=== PATIENT | male | born 1980 | race Caucasian/White ===

== ENCOUNTER 2023-06-15 20:30 | Day surgery (SDC) | payer BC, SELFPAY ==
--- NOTE | ~2023-06-15 | XR_ITS ---
EXAMINATION: XR SOFT TISSUE NECK CLINICAL INDICATION: Question esophageal food bolus. COMPARISON: None available. TECHNIQUE: 2 views of the soft tissue neck were obtained. FINDINGS: There is normal cervical lordosis. The vertebral heights, alignment and disc heights and normal. No visible acute fracture, dislocation or subluxation seen. There is moderate left C2-C3 facet joint arthropathy and hypertrophy. The prevertebral and paravertebral soft tissues are normal. Airway is widely patent. No radiopaque foreign body seen in the airway. XR/XR soft tissue neck IMPRESSION: . No radiopaque foreign body seen in the airway or cervical esophagus. Moderate left C2-C3 facet joint arthropathy and hypertrophy. No visible acute fracture or dislocation seen. No radiopaque foreign body seen in the soft tissues of the neck
--- NOTE | 2023-06-15 20:56 | ED.GENADULT ---
HPI - General Adult General Chief complaint: General Medical Stated complaint: Piece of steak stuck in throat Time Seen by Provider: 06/15/23 21:14 Source: patient Mode of arrival: ambulatory Limitations: no limitations History of Present Illness HPI narrative: Patient with no significant past medical history apparently had a small piece of steak at 18:00 which he felt stuck in his throat unable to swallow saliva or liquids and solids no history of similar symptoms in the past patient tried Pepsi at home without much relief no stridor no shortness of breath speaking full sentences Related Data Previous Rx's Medication Instructions Recorded omeprazole 20 mg capsule,delayed 20 mg PO DAILY 60 days #60 caps 06/16/23 release Allergies Allergy/AdvReac Type Severity Reaction Status Date / Time No Known Allergies Allergy Verified 06/15/23 20:59 Review of Systems Review of Systems: Yes all other systems are reviewed and are negative [facility] Social History Social History Alcohol intake: current Alcohol intake frequency: holidays/special occasions only Smoked in Last 30 Days: No Use of substances other than those prescribed or required for medical reasons: No Advance Directives: No Advance Directives Information Provided: No Physical Exam ED Vital Signs: Vital Signs - 24 hr 06/15/23 20:57 06/15/23 22:50 06/16/23 00:29 Temperature 97.2 F 97 F Pulse Rate 92 68 80 Respiratory Rate 18 16 17 Blood Pressure 121/82 116/81 130/79 Pulse Oximetry 98 92 98 Oxygen Delivery Method Room Air Room Air Nasal Cannula Oxygen Flow Rate 4 06/16/23 00:34 06/16/23 00:39 06/16/23 00:44 Temperature Pulse Rate 82 78 82 Respiratory Rate 16 14 16 Blood Pressure 127/74 118/80 119/71 Pulse Oximetry 98 97 98 Oxygen Delivery Method Room Air Room Air Room Air Oxygen Flow Rate 06/16/23 00:59 06/16/23 01:04 06/16/23 04:08 Temperature 97.1 F 98.3 F Pulse Rate 78 80 75 Respiratory Rate 14 14 20 Blood Pressure 112/70 114/76 109/67 Pulse Oximetry 99 100 100 Oxygen Delivery Method Room Air Room Air Room Air Oxygen Flow Rate 06/16/23 05:58 Temperature Pulse Rate 100 Respiratory Rate 16 Blood Pressure 114/72 Pulse Oximetry 100 Oxygen Delivery Method Room Air Oxygen Flow Rate BMI result Body Mass Index 28.1 Appearance: Alert. Oriented X3. No acute distress. Eyes: PERRLA, No Nystagmus ENT: Pharynx normal. Oral Mucosa moist no stridor Neck: Normal inspection. Neck supple. CVS: Normal heart rate and rhythm. Pulses normal. Respiratory: No respiratory distress. Equal air entry bilateral, no wheezing/rales/rhonchi Abdomen: Soft and nontender. Bowel sounds are present, no mass palpable, no CVA tenderness Skin: Skin warm and dry. Normal skin color. Normal skin turgor. Extremities: No lower extremity edema. No calf tenderness Neuro: Oriented X 3. Course Course Course Narrative: RME- 42 year old male presents for evaluation of a piece of steak stuck in his throat that happened around 6pm. He is currently managing secretions but reports that he is unable to tolerate fluids. Medications Administered Discontinued Medications Generic Name Dose Route Start Last Admin Trade Name Freq PRN Reason Stop Dose Admin Glucagon 1 mg 06/15/23 21:26 06/15/23 21:58 Glucagon Hcl 1 Mg Vial IVPUSH 06/15/23 21:27 1 mg ONCE ONE Administration Medical Decision Making Medical Decision Making [facility] Narrative: 21:30 Carbonated drinks were tried without any response will give IV glucagon and there is no response will get the GI consult for endoscopy and removal of the foreign body 1 am patient came back from short stay after piece of steak was stable from the distal esophagus patient was able to drink p.o. fluids after that discharge patient home advised to follow up as outpatient 06:28 : Dr. Santoro's The patient was kept overnight after procedural sedation since he did not have a ride home and the plan was to keep him here until was awake and alert and able to drive. I did review Dr. Rdz's endoscopy note. The patient had a large piece of steak impacted in the distal esophagus. This was removed piecemeal. The patient did have focal esophagitis but this was felt to be secondary to the impacted food bolus. Biopsies were taken. I did discuss these findings with the patient and told the patient he should contact Dr. Rdz's office for follow-up and to discuss the biopsy results. 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 the patient states that prior to this he was not having any difficulty swallowing liquids or solids, he is currently having some soreness in his throat but this is most likely secondary to the endoscopy and food bolus impaction. Differential Diagnosis Differential Diagnoses: The differential diagnosis associated with the presentation includes Foreign body impaction/achlasia Lab Data 06/15/23 22:25 06/15/23 22:25 Labs: Lab Results 06/15/23 Range/Units 22:25 WBC 8.4 (4.8-10.8) X10*3/uL RBC 4.96 (4.60-5.80) X10*6/uL Hgb 15.0 (14.0-18.0) g/dl Hct 42.9 (42.0-52.0) % MCV 86.5 (80.0-98.0) fL MCH 30.2 (27.0-33.0) pg MCHC 35.0 (31.0-36.0) g/dl RDW 11.7 (11.0-16.0) % Plt Count 199 (160-400) X10*3/uL MPV 10.5 (9.4-12.4) fL Immature Gran % (Auto) 0.2 (0.0-0.4) % Neut % (Auto) 74.5 H (45-73) % Lymph % (Auto) 17.0 L (20-40) % Lares % (Auto) 4.7 (2-11) % Eos % (Auto) 2.3 (0-4) % Baso % (Auto) 1.3 (0-2) % Lymph # (Auto) 1.4 (1.2-4.9) X10*3/uL Lares # (Auto) 0.4 (0.1-1.2) X10*3/uL Eos # (Auto) 0.2 (0.0-0.4) X10*3/uL Baso # (Auto) 0.1 (0.0-0.2) X10*3/uL Abs Immat Gran (auto) 0.02 (0.00-0.03) X10*3/uL Absolute Neuts (auto) 6.2 (2.0-8.3) x10*3/uL Absolute Nucleated RBC 0.000 (0.0-0.012) X10*3/uL Nucleated RBC % (auto) 0.0 (0.0-0.2) /100WBC Sodium 139 (135-145) mmol/L Potassium 3.3 (3.3-5.1) mmol/L Chloride 107 (96-108) mmol/L Carbon Dioxide 21 L (22-29) mmol/L Anion Gap 14 (12-20) BUN 12 (9-16) mg/dL Creatinine 1.07 (0.5-1.4) mg/dL Estim Creat Clear Calc 93.9 Estimated GFR > 60 Random Glucose 197 H (60-115) mg/dL Calcium 9.4 (8.4-10.2) mg/dL Total Bilirubin 0.5 (0.0-1.0) mg/dL AST 21 (5-37) U/L ALT 17 (0-40) U/L Alkaline Phosphatase 60 (39-117) U/L Total Protein 7.4 (6.5-8.0) g/dL Albumin 4.5 (3.5-5.0) g/dL Lipase 17 (8-78) U/L Independent Interpretation I performed an independent interpretation of an: EKG Discharge Plan Discharge Clinical Impression: Impacted esophageal foreign body Patient Disposition: Home, Self-Care
[2023-06-15 20:57] VITALS: BP 121/82; PULSE 92; RESP 18; TEMP 36.2; O2SAT 98; BMI 28.1
--- NOTE | 2023-06-15 20:59 | ECG_ITS ---
Test Reason : PRE OP Blood Pressure : / mmHG Vent. Rate : 082 BPM Atrial Rate : 082 BPM P-R Int : 152 ms QRS Dur : 086 ms QT Int : 354 ms P-R-T Axes : 059 -10 014 degrees QTc Int : 413 ms Normal sinus rhythm with sinus arrhythmia Nonspecific ST abnormality Inferior leads Abnormal ECG No previous ECGs available Referred By: Jimmie Rosales Electronically Signed By:SOHEILA HARMON MD
--- NOTE | 2023-06-15 21:48 | MHC.EDTECH ---
Dr Conner stated did not need lab work and EKG. Saniya KRAUS aware.
[2023-06-15] MEDS: glucagon HCL 1 MG VIAL IVPUSH (21:58)
[2023-06-15 22:31] LABS: MANUAL DIFF FLAG NO
[2023-06-15 22:33] LABS: Basophils Absolute Auto 0.1 X10*3/uL (0.0-0.2); Basophils Percent Auto 1.3 % (0-2); Eosinophils Absolute Auto 0.2 X10*3/uL (0.0-0.4); Eosinophils Percent Auto 2.3 % (0-4); Hematocrit 42.9 % (42.0-52.0); Imm Gran Abs Auto 0.02 X10*3/uL (0.00-0.03); Imm Gran Pct Auto 0.2 % (0.0-0.4); Lymphocytes Absolute Auto 1.4 X10*3/uL (1.2-4.9); Mean Corpuscular Hemoglobin 30.2 pg (27.0-33.0); Mean Corpuscular Volume 86.5 fL (80.0-98.0); Mean Platelet Volume 10.5 fL (9.4-12.4); Monocytes Absolute Auto 0.4 X10*3/uL (0.1-1.2); Monocytes Percent Auto 4.7 % (2-11); Neutrophils Absolute Auto 6.2 x10*3/uL (2.0-8.3); Neutrophils Percent Auto 74.5 % (45-73); Platelet Count 199 X10*3/uL (160-400); Red Blood Count 4.96 X10*6/uL (4.60-5.80); Red Cell Distribution Width 11.7 % (11.0-16.0); White Blood Count 8.4 X10*3/uL (4.8-10.8)
[2023-06-15 22:48] LABS: Alanine Aminotransferase 17 U/L (0-40); Albumin Level 4.5 g/dL (3.5-5.0); Alkaline Phosphatase 60 U/L (39-117); Anion Gap 14 (12-20); Aspartate Amino Transferase 21 U/L (5-37); Bilirubin Total 0.5 mg/dL (0.0-1.0); Blood Urea Nitrogen 12 mg/dL (9-16); Calcium 9.4 mg/dL (8.4-10.2); Carbon Dioxide 21 mmol/L (22-29); Chloride 107 mmol/L (96-108); Creatinine Clr Calc Pharmacy 93.9; Estimated Glomerular Filt Rate > 60; Glucose Random 197 mg/dL (60-115); Lipase 17 U/L (8-78); Potassium 3.3 mmol/L (3.3-5.1); Sodium 139 mmol/L (135-145); Total Protein 7.4 g/dL (6.5-8.0)
[2023-06-15 22:50] VITALS: BP 116/81; PULSE 68; RESP 16; O2SAT 92
--- NOTE | 2023-06-15 22:55 | PM.GICN ---
History of Present Illness Data of Consult Service Date: 06/15/23 Requesting physician: Luke Conner Primary Care Provider: None Physician HPI Reason for consult: dysphagia 42 YM presented to [facility] [place] ED today with dysphagia. Pt had a small piece of steak (rare) at 18:00 which he felt stuck in his throat unable to swallow saliva or liquids since then. Pt states he only took one bite. Patient tried Pepsi at home without much relief No stridor no shortness of breath speaking full sentences Pt denies past hx of dysphagia. He gives a hx of heartburn at age 15. Denies any chronic medical problems, snoring or sleep apnea Denies past surgeries or anesthesia Pt denies smoking and drinks 1-2 beers a few times a week Pt denies known family hx of colon polyps or GI malignancy. Mom has a hx of GERD. Pt lives with his and 3 kids. Review of Systems Review of Systems: Yes all other systems are reviewed and are negative PMF[facility] Social History Social History Advance Directives: No Advance Directives Information Provided: No Meds Allergies Allergy/AdvReac Type Severity Reaction Status Date / Time No Known Allergies Allergy Verified 06/15/23 20:59 Physical Exam Vital Signs: Vital Signs: Last Vital Signs Temp 97.2 F 06/15/23 20:57 Pulse 68 06/15/23 22:50 Resp 16 06/15/23 22:50 BP 116/81 06/15/23 22:50 Pulse Ox 92 06/15/23 22:50 O2 Del Method Room Air 06/15/23 22:50 BMI result Body Mass Index 28.1 Const: General: healthy appearing and no acute distress Nutritional Appearance: overweight Orientation/consciousness: patient oriented x3 Limitations: no limitations HEENT: Head: Yes normal to inspection Ears: hearing grossly normal bilaterally Mouth: Normal oral and palatal mucosa present Eyes: Sclerae: sclerae normal Pupils: Equal, round and reactive pupils present Neck: Neck: Yes normal visual inspection Chest: Chest palpation & inspection: normal inspection of the chest Resp: Effort & Inspection: normal respiratory effort Auscultation: clear to auscultation bilaterally Cardio: Palpation: normal PMI Rate: regular rate Rhythm: regular rhythm Heart sounds: S1 normal heart sound present, S2 normal heart sound present and no murmurs GI: Palpation (GI): Soft to palpation, nontender and No hepatosplenomegaly present Auscultation: normal bowel sounds Rectal Exam - Male: Yes deferred Skin: General skin exam: no rashes or lesions noted Neuro: General: patient oriented x3, gait normal and moves all extremities Cranial nerves: Yes Equal, round and reactive pupils present Psych: Appearance: grossly normal Mental Status: mental status grossly normal Results Labs 06/15/23 22:25 06/15/23 22:25 Labs: Short CBC 06/15/23 Range/Units 22:25 WBC 8.4 (4.8-10.8) X10*3/uL Hgb 15.0 (14.0-18.0) g/dl Hct 42.9 (42.0-52.0) % Plt Count 199 (160-400) X10*3/uL BMP 06/15/23 22:25 Sodium 139 Potassium 3.3 Chloride 107 Carbon Dioxide 21 L BUN 12 Creatinine 1.07 Calcium 9.4 Liver Function 06/15/23 Range/Units 22:25 Total Bilirubin 0.5 (0.0-1.0) mg/dL AST 21 (5-37) U/L ALT 17 (0-40) U/L Alkaline Phosphatase 60 (39-117) U/L Albumin 4.5 (3.5-5.0) g/dL Assessment and Plan (1) Impacted esophageal foreign body: Status: Acute Plan 42 YM presented to [facility] [place] [facility] ED today with dysphagia. Pt had a small piece of steak (rare) at 18:00 which he felt stuck in his throat unable to swallow saliva or liquids since then. Pt states he only took one bite. Patient tried Pepsi at home without much relief Pt treated with Glucagon in the ER without relief Food impaction possibly related to esophageal stricture, ring, esophageal motility disorder or EOE. RECOMMENDATIONS: Proceed with urgent upper endoscopy tonight for removal of esophageal foreign body. EGD procedure and potential complications including bleeding, perforation, reaction to anesthetics and aspiration were reviewed with the patient. Time Spent With Patient Time: Total time managing care of this patient today ____ minutes. Procedures Date of Service Date of Service: 06/15/23
--- NOTE | 2023-06-15 23:31 | PC.NURSE ---
RN to RN report given to Kath, pt will be transported to OR, pt aware of plan.
[2023-06-16] VITALS (8 sets, daily range): BP systolic 109–130; BP diastolic 67–80; PULSE 75–100; RESP 14–20; TEMP 36.1–36.8; O2SAT 97–100
--- NOTE | 2023-06-16 00:17 | W.PM.OPN ---
Operative Note Operative Note Date of Service: 06/16/23 Narrative: FLEXIBLE TRANSORAL UPPER GASTROINTESTINAL ENDOSCOPY WITH REMOVAL OF ESOPHAGEAL FOREIGN BODY AND BIOPSIES Pre-op diagnosis: DYSPHAGIA, FOOD IMPACTION Post-op diagnosis: same Endoscopist:? Mynor Rdz MD Anesthesia:?GA with endotracheal intubation (Dr Muro) Consent: Indications for the procedure and potential complications of bleeding, perforation, reaction to medications and missed diagnosis were discussed with the patient and informed consent was obtained. Instrument: Olympus GIF H 190 mid size upper endoscope Monitoring: Vital signs and clinical assessment, continuous EKG monitoring, Pulse oximetry, Carbon Dioxide monitoring and blood pressure monitoring were done throughout the procedure. Procedure: The patient was placed in the left lateral decubitis position and pre-procedure medications were administered and a bite block was placed. The endoscope was inserted into the mouth and advanced under direct vision to the third part of duodenum. A careful inspection was made as the upper endoscope was withdrawn including a retroflexed examination of the proximal stomach; Findings and interventions are described below. Findings: Larynx: ET tube in place Esophagus: A large food bolus (piece of steak) noted impacted in the distal esophagus. Food bolus was removed piecemeal with the help of tri-pronged Polyp Grabber Esophagus was cleared after 7-8 passes of the endoscope. GE junction at 42 cms. A mid size upper endoscope was passed through the GE junction without resistance. Focal esophagitis in the distal esophagus - likely due to impacted food bolus. No stricture or ring noted. Biopsies were obtained from proximal esophagus to check for EOE Stomach: normal gastric mucosa. Grade 2 flap valve on retroflexed examination of the cardia. Duodenum: Normal bulb and descending duodenum Intervention: Biopsies and removal of esophageal foreign body as noted above Impression and Post Procedure Diagnosis: Endoscopy Findings: ESOPHAGUS: A large food bolus (piece of steak) noted impacted in the distal esophagus. Food bolus was removed piecemeal with the help of tri-pronged Polyp Grabber No stricture or ring noted. Biopsies were obtained from proximal esophagus to check for EOE Plan: I will contact the patient with pathology results Repeat EGD with dilation if pt continues to have dysphagia. Above findings were reviewed with the patient. Patient will be kept in observation in the ER overnight and discharge home in the am (since he does not have a ride to take him home tonight)
--- NOTE | 2023-06-16 00:30 | P.CONAN_ITS ---
[facility] Active Problems Active Problems: All Active Problems (Updated 06/15/23 @ 22:18 by Luke Conner MD) Impacted esophageal foreign body (Acute) Family History Family history of problems with anesthesia: No Surgical History History of Problems with Anesthesia: No Social History Social History Advance Directives: No Advance Directives Information Provided: No Meds Allergies Allergy/AdvReac Type Severity Reaction Status Date / Time No Known Allergies Allergy Verified 06/15/23 20:59 Exam Exam Date and Time: June 16, 2023 003 Height,Weight and Vital Signs: Height 5 ft 8 in Weight 83.915 kg Last Vital Signs Temp 97 F 06/16/23 00:29 Pulse 80 06/16/23 00:29 Resp 17 06/16/23 00:29 BP 130/79 06/16/23 00:29 Pulse Ox 98 06/16/23 00:29 O2 Del Method Nasal Cannula 06/16/23 00:29 O2 Flow Rate 4 06/16/23 00:29 Pertinent Lab Results Pertinent Lab Results: Laboratory Tests 06/15/23 22:25 WBC 8.4 RBC 4.96 Hgb 15.0 Hct 42.9 MCV 86.5 MCH 30.2 MCHC 35.0 RDW 11.7 Plt Count 199 MPV 10.5 Immature Gran % (Auto) 0.2 Neut % (Auto) 74.5 H Lymph % (Auto) 17.0 L Mingo % (Auto) 4.7 Eos % (Auto) 2.3 Baso % (Auto) 1.3 Lymph # (Auto) 1.4 Mingo # (Auto) 0.4 Eos # (Auto) 0.2 Baso # (Auto) 0.1 Abs Immat Gran (auto) 0.02 Absolute Neuts (auto) 6.2 Absolute Nucleated RBC 0.000 Nucleated RBC % (auto) 0.0 Sodium 139 Potassium 3.3 Chloride 107 Carbon Dioxide 21 L Anion Gap 14 BUN 12 Creatinine 1.07 Estim Creat Clear Calc 93.9 Estimated GFR > 60 Random Glucose 197 H Calcium 9.4 Total Bilirubin 0.5 AST 21 ALT 17 Alkaline Phosphatase 60 Total Protein 7.4 Albumin 4.5 Lipase 17 Airway Mallampati Class: II TM Dist: >3cm Neck ROM: Full Assessment and Plan Assessment Anesthesia Assessment: Anesthesia Plan Discussed and Chart Reviewed Final Anesthetic Review Family History of Problems with Anesthesia: No History of Problems with Anesthesia: No NPO: Yes ASA Class: II and Emergency Final Preanesthetic Review: No Changes in Pt Med Stat, Meds/Allgs Chart Reviewed, Consent Obtained/Reviewed and Anes Risks/Benef Reviewed Patient Risk: Low Procedure Risk: Low Anesthetic Plan Anesthetic Plan: GA Disposition: Standard PACU
--- NOTE | 2023-06-16 01:04 | PC.NURSE ---
Pt back from OR, A&Ox4, denies any pain, VSS.
--- NOTE | 2023-06-16 06:42 | PC.NURSE ---
Pt ambulated independently with steady gait for ambulation trial.
== END 2023-06-15 23:22 ==
LOC: HO.ED 06-16 00:29 → HO.SSS 06-16 00:40
PROVIDERS: Physician Assistant; Emergency Provider Internal Medicine; Visit Provider Internal Medicine Gastroenterology
PROC: 0DJ08ZZ Inspection of Upper Intestinal Tract, Via Natural or Artificial Opening Endoscopic (ICD-10-PCS; CPT 43235; principal; 2023-06-15 23:30)
DX: T18.108A Unspecified foreign body in esophagus causing other injury, initial encounter (principal); R13.10 Dysphagia, unspecified; K20.80 Other esophagitis without bleeding; W44.F3XA Food entering into or through a natural orifice, initial encounter; Y93.89 Activity, other specified; Y92.9 Unspecified place or not applicable; Y99.8 Other external cause status; Z79.899 Other long term (current) drug therapy
CPT/HCPCS: 43247; 43239; 36415; 70360; 80053; 83690; 85025; 88305; 93005; 96374; 99284; 99285; J1100; J1610; J2250; J2405; J3010

== ENCOUNTER → 2023-06-15 21:37 | Outpatient (BNV) | payer BC, SELFPAY | PROVIDERS: Emergency Provider Internal Medicine; Visit Provider Internal Medicine Gastroenterology | DX: T18.108A Unspecified foreign body in esophagus causing other injury, initial encounter (principal); R13.10 Dysphagia, unspecified | CPT/HCPCS: 43247; 99284 ==

== ENCOUNTER 2024-10-13 11:51 | Day surgery (SDC) | payer OTHER, SELFPAY ==
--- NOTE | 2024-10-10 12:14 | HO.ANESPROP2 ---
Documented by User: Tita Villegas NP 10/10/24 12:15 HPI - Anesthesia Eval Consult details Narrative: 44yo M for Upper Endoscopy with Dilitation [facility] Active Problems Active Problems: All Active Problems GERD (gastroesophageal reflux disease) (Acute) Impacted esophageal foreign body (Acute) Family History Family history of problems with anesthesia: No Surgical History History of Problems with Anesthesia: No Social History Social History Alcohol intake: current Alcohol intake frequency: holidays/special occasions only Patient Tobacco Use Status: Former Tobacco user Use of substances other than those prescribed or required for medical reasons: No Advance Directives: No Advance Directives Information Provided: Yes Meds Allergies Allergy/AdvReac Type Severity Reaction Status Date / Time No Known Allergies Allergy Verified 06/15/23 20:59 Assessment and Plan Assessment Anesthesia Assessment: Chart Reviewed Final Anesthetic Review Family History of Problems with Anesthesia: No History of Problems with Anesthesia: No Documented by User: Valerie Muro MD 10/13/24 13:03 [facility] Social History Social History Alcohol intake: current Alcohol intake frequency: holidays/special occasions only Patient Tobacco Use Status: Former Tobacco user Use of substances other than those prescribed or required for medical reasons: No Advance Directives: No Advance Directives Information Provided: Yes Meds Allergies Allergy/AdvReac Type Severity Reaction Status Date / Time No Known Allergies Allergy Verified 06/15/23 20:59 Exam Airway Mallampati Class: II TM Dist: >3cm Neck ROM: Full Partial: Upper Assessment and Plan Assessment Anesthesia Assessment: Anesthesia Plan Discussed Final Anesthetic Review NPO: Yes ASA Class: II Final Preanesthetic Review: No Changes in Pt Med Stat, Meds/Allgs Chart Reviewed, Consent Obtained/Reviewed, Anes Risks/Benef Reviewed and DNR Form (If Appl.) Patient Risk: Low Procedure Risk: Low Anesthetic Plan Anesthetic Plan: TIVA Disposition: Standard PACU
[2024-10-13 12:07] VITALS: BP 122/82; PULSE 74; RESP 16; TEMP 37.2; O2SAT 98
[2024-10-13 12:08] VITALS: BMI 28.1
[2024-10-13] MEDS: Lactated Ringers 1,000 ML 100 ML IVCONT (12:32)
--- NOTE | 2024-10-13 13:10 | MHC.SHP ---
Pre-Procedural Eval Section A - 24 Hr Update-Section A only Date of Service: 10/13/24 The patient is an INPATIENT: No The patient has been examined within 24 hours of the surgical procedure. The History & Physical has been completed within 30 days and I have reviewed it.: No Section B - Complete if H&P > 30 days Chief Complaint: Dysphagia, unspecified Relevant Family History (Specify if Yes): No Relevant Social History: None Present Medications: see Short Stay Collaborative assessment Medical History: Significant History (GERD, dysphagia) History of Previous Operations: Relevant previous surgery/procedure and date(s) (History of EGD) Allergies: Allergies Allergy/AdvReac Type Severity Reaction Status Date / Time No Known Allergies Allergy Verified 06/15/23 20:59 Review of Systems Sugical H&P ROS: Negative: Constitution, Cardiovascular and Respiratory and Yes, Specify: Gastrointestinal (dysphagia) Exam Surgical H&P Exam: Normal: Heart, Normal: Lungs, Normal: Extremities and Normal: Abdomen Plan Diagnosis/Plan: Change (proceed with EGD) I have reviewed the history and physical and performed a pertinent physical examination on my patient. No changes have occurred unless specified. Time Spent With Patient Time: Total time managing care of this patient today ____ minutes.
--- NOTE | 2024-10-13 13:35 | W.PM.OPN ---
Operative Note Operative Note Date of Service: 10/13/24 Narrative: FLEXIBLE TRANSORAL UPPER GASTROINTESTINAL ENDOSCOPY WITH BIOPSIES AND ESOPHAGEAL SAVORY DILATION OVER A GUIDE WIRE Pre-op diagnosis: Dysphagia, FU of EOE Post-op diagnosis: Same Endoscopist:? Mynor Rdz MD Anesthesia:?MAC UPPER ENDOSCOPY Consent: Indications for the procedure and potential complications of bleeding, perforation, reaction to medications and missed diagnosis were discussed with the patient and informed consent was obtained. Instrument: Olympus GIF H 190 mid size upper endoscope Monitoring: Vital signs and clinical assessment, continuous EKG monitoring, Pulse oximetry, Carbon Dioxide monitoring and blood pressure monitoring were done throughout the procedure. Procedure: The patient was placed in the left lateral decubitis position and pre-procedure medications were administered and a bite block was placed. The endoscope was inserted into the mouth and advanced under direct vision to the third part of duodenum. A careful inspection was made as the upper endoscope was withdrawn including a retroflexed examination of the proximal stomach; Findings and interventions are described below. Findings: Larynx: Normal Esophagus: GE junction at 40 cms. Circular rings in the esophagus. A 1 cms ulcer in the distal esophagus A mid size upper endoscope was passed with minimal resistance A guide wire was passed and the endoscope was removed over the guidewire. Esophageal dilation was performed with a 12 mm savory dilator with mild resistance. Stomach: Moderate gastric antral erythema - biopsies were obtained from the antrum. Grade 2 flap valve on retroflexed examination of the cardia. Duodenum: Normal bulb and descending duodenum Intervention: Biopsies as noted above Impression and Post Procedure Diagnosis: Endoscopy Findings: ESOPHAGUS: STOMACH: DUODENUM: Plan: Pt has a FU appointment on with 02/12/25, Dr Rdz. Above findings were reviewed with the patient and relevant handouts were given and the discharge area.
[2024-10-13 13:40] VITALS: BP 113/52; PULSE 78; RESP 16; TEMP 36.4; O2SAT 97
[2024-10-13 13:55] VITALS: BP 107/63; PULSE 78; RESP 16; TEMP 36.3; O2SAT 97
== END 2024-10-13 14:18 | disposition home or self-care (01) ==
PROVIDERS: Visit Provider Internal Medicine Gastroenterology
PROC: (CPT 43248; principal; 2024-10-13 13:40)
DX: K20.80 Other esophagitis without bleeding (principal); K29.70 Gastritis, unspecified, without bleeding; K31.9 Disease of stomach and duodenum, unspecified; R13.10 Dysphagia, unspecified; K21.9 Gastro-esophageal reflux disease without esophagitis; Z87.891 Personal history of nicotine dependence
CPT/HCPCS: 43248; 43239; 88305; 88313; 88342; C1769; J2003; J2704

== ENCOUNTER → 2024-10-13 11:51 | Outpatient (BNV) | payer OTHER, SELFPAY | PROVIDERS: Visit Provider Internal Medicine Gastroenterology | DX: R13.10 Dysphagia, unspecified (principal); K20.0 Eosinophilic esophagitis; K29.70 Gastritis, unspecified, without bleeding | CPT/HCPCS: 43239; 43248 ==